=== PATIENT | male | born 1950 | race Caucasian/White ===

== ENCOUNTER 2016-07-13 15:25 | Emergency (ER) | payer MEDICARE, BC ==
--- NOTE | 2016-07-13 17:14 | ER NURSING DOCUMENTATION ---
Nurse's Notes [facility] Name:Gideon Roca Age:66 yrs Sex:Male :1950 Arrival Date:07/13/2016 Time:15:25 Bed4 Private MD: Diagnosis:Altered Mental Status;Hypoglycemia;Transient Ischemic Attack (TIA) Presentation: 07/13 15:32 Transition of care: patient was not received from another setting of care. nf 15:32 Acuity: LIZZIE 2 nf 15:32 Method Of Arrival: Walk In nf 15:32 An acute neurological deficit is present. The patient has been moved to a treatment area. Notified ED Physician of patient's arrival and CC Francesco Sexton notified. 15:32 Presenting complaint: states: @1430 patient developed slurred speech and unstable nf walking; is concerned patient is hypoglycemia, she was able to get him to eat 1/2 a salad prior to coming to ER; upon arrival to ER symptoms slightly improved. Pre-hospital glucose is not applicable to this patient. Triage Assessment: 15:32 The onset of the patients symptoms was less than three hours ago. General: Appears in nf no apparent distress, well nourished, well groomed, Behavior is flat, quiet, Denies fever, feeling ill, fatigue. EENT: No deficits noted. Neuro: Reports feeling "better". Cardiovascular: Denies fatigue, lightheadedness, palpitations, Rhythm is sinus rhythm. Respiratory: Respiratory effort is even, unlabored, Respiratory pattern is regular. GI: Last meal at 15:00. Denies nausea, pain, vomiting. : Denies urinary symptoms. 15:34 Neuro: Level of Consciousness is awake, alert, Denies weakness blurred vision nf dizziness, difficulty swallowing, paresthesias numbness headache. Historical: - Allergies: Tetracycline; - Home Meds: 1. Simvastatin Oral 2. fenofibrate micronized oral 3. levothyroxine oral 4. Folic Acid Oral 5. glimepiride 1 mg oral tab 1 tab once daily 6. Metformin Oral 7. Replesta oral 8. Aspirin Oral 9. insulin - PMHx: DIABETES - IDDM; HIGH CHOLESTEROL; THYROID PROBLEM; - PSHx: HERNIA REPAIR; KNEE SURGERY; - Tetanus: < 10 years. - Ebola Screening: : No symptoms or risks identified at this time. . - Immunization history: Flu Vaccine < 1 year. - Social history: Smoking status: Patient states former smoker of tobacco. Patient uses alcohol but reports only rare drinking. Patient/guardian denies using street drugs. Screenin:32 Infectious Disease Risk None. Abuse screen: Denies threats or abuse. Nutritional nf screening: No deficits noted. Assessment: 15:32 See Triage Assessment done by same RN. Pain: Denies pain. nf 16:13 Reassessment: all symptoms resolved and speech clear. See Triage Assessment done by nf same RN. Vital Signs: 15:32 BP 179 / 79; Pulse 65; Resp 16; Temp 97.2(O); Pulse Ox 96% on R/A; Weight 101.6 kg; nf Height 5 ft. 11 in. (180.34 cm); Pain 0/10; 16:02 BP 154 / 85; Pulse 67; Resp 12; Pulse Ox 96% on R/A; Pain 0/10; nf 17:08 BP 169 / 72; Pulse 63; Resp 12; Pulse Ox 96% on R/A; Pain 0/10; nf 15:32 Body Mass Index 31.24 (101.60 kg, 180.34 cm) nf Maxwell Coma Score: 15:32 Eye Response: spontaneous(4). Verbal Response: oriented(5). Motor Response: obeys nf commands(6). Total: 15. 16:30 Eye Response: spontaneous(4). Verbal Response: oriented(5). Motor Response: obeys nf commands(6). Total: 15. 17:08 Eye Response: spontaneous(4). Verbal Response: oriented(5). Motor Response: obeys nf commands(6). Total: 15. NIH Stroke Scale Scores: 15:32 NIHSS Score: 1 nf ED Course: 15:27 Patient arrived in ED. hw2 15:28 Jose Manuel Maya MD is Attending Physician. jm 15:[address] pm1 15:32 Aylin Johnson, RN is Primary Nurse. nf 15:32 Triage completed. nf 15:32 Family accompanied patient. nf 15:32 Valuables Remains with patient Bed in low position. Side rails up X2. Cardiac nf Monitoring On for Nurse Monitoring only. Door closed. Noise minimized. Lights dimmed. Moved to private room. Verbal reassurance given. Warm blanket given. Pillow given. Diet: Patient is NPO. 15:32 Arm band placed on. nf 15:45 Patient moved back from CT. pm1 15:55 EKG done. (by ED staff). Reviewed by Jose Manuel Maya MD. nf 16:01 EKG attached sc1 Administered Medications: No medications were administered Point of Care Testing: Blood Glucose: 15:32 Blood Glucose: 86 mg/dL; nf Ranges: Outcome: 16:57 Discharge ordered by . 17:08 Discharged to home ambulatory, with significant other. nf 17:08 Condition: improved 17:08 Discharge Assessment: Patient awake, alert and oriented x 3. No cognitive and/or functional deficits noted. Patient verbalized understanding of disposition instructions. asymptomatic 17:08 Discharge instructions given to patient, significant other, Instructed on discharge instructions, follow up and referral plans. Demonstrated understanding of instructions. 17:15 Patient left the ED. nf 02 14:05 Discharge F/U Call: Spoke with: patient. Have you filled your prescriptions? n/a Did sc1 your discharge instructions answer all of your questions? yes Have you made a f/u appointment? yes Overall Care on a scale of 1-10 with 10 being the best care, you rate our care as: the rating of 10. NIH Stroke Scale - NIH Stroke Score Date: 07/13/2016 Time: 15:32 Total Score = 1 1a. Level of Consciousness (LOC) - 0(Alert) 1b. Level of Consciousness (LOC) (Year & Age) - 0(Both) 1c. LOC Commands (Open & Closes Eyes/Cargo Bracer) - 0(Both) 2. Best Gaze (Lateral Gaze Paresis) - 0(Normal) 3. Visual Field Loss - 0(No visual loss) 4. Facial Palsy - 0(Normal) 5a. Left Arm: Motor (10-second hold) - 0(No drift) 5b. Right Arm: Motor (10-second hold) - 0(No drift) 6a. Left Leg: Motor (5-second hold ? always test supine) - 0(No drift) 6b. Right Leg: Motor (5-second hold ? always test supine) - 0(No drift) 7. Limb Ataxia (finger/nose & heel/mcneal ? test with eyes open) - 0(Absent) 8. Sensory Loss (pinprick arms/legs/face) - 0(Normal) 9. Best Language: Aphasia (description/naming/reading) - 0(No aphasia) 10. Dysarthria (speech clarity ? read or repeat words) - 1(Mild to Moderate) 11. Extinction and Inattention (visual/tactile/auditory/spatial/personal) - 0(No abnormality) Initials: nf Signatures: Eunice Bynum RN RN sc1 Aylin Johnson RN RN nf Jose Manuel Maya MD MD jm McBride, Philisha 1 Clotilde Rojas 2
--- NOTE | 2016-07-13 17:14 | ER PHYSICIAN DOCUMENTATION ---
Physician Documentation [facility] Name:Gideon Roca Age:66 yrs Sex:Male :1950 Arrival Date:07/13/2016 Time:15:25 Bed4 Private MD: Jose Manuel Stone Disposition: 07/13/16 16:57 Discharged to Home/Self Care. Impression: Altered Mental Status, Hypoglycemia, Transient Ischemic Attack (TIA). - Condition is Good. - Discharge Instructions: CONFUSION, HYPOGLYCEMIA, Oral Agents, TIA. - Medical Reconciliation form form. - Follow up: Private Physician; When: 2 - 3 days; Reason: Continuance of care. - Problem is new. - Symptoms have improved. - Notes: Come back here to get an MRI of the brain, an ECHO of the heart, and a Carotid Ultrasound. You may need prior authorization for these tests, so get in touch with Dr. Dana KANG if needed. HPI: 07/13 16:53 This 66 yrs old Male presents to ER via Walk In with complaints of Slurred Speech. 16:53 The patient presents to the emergency department with a speech or higher order brain function problem, slurred. Onset: The symptom(s)/episode began/occurred just prior to arrival. Context: occurred while the patient was driving. Associated signs and symptoms: Pertinent positives: altered mental status, anger. Severity of symptoms: in the emergency department the symptoms have resolved. Current symptoms: Currently, the patient is not experiencing any symptoms. Risk factors for stroke or transient ischemic attack: diabetes mellitus, hyperlipidemia. The patient has not experienced similar symptoms in the past. The patient has not recently seen a physician. 16:59 was driving and pt was becoming more and more "out of it". She wanted to go to the ER, but he was belligerent a nd very angry. He said he was hungry, so they got a salad and went home. He started to feel better, but had already called [facility] [place] RN, who said if they don't come to ER by POV, she was going to call 911. Pt feels fine now. Pt states this has never happened before. . Historical: - Allergies: Tetracycline; - Home Meds: 1. Simvastatin Oral 2. fenofibrate micronized oral 3. levothyroxine oral 4. Folic Acid Oral 5. glimepiride 1 mg oral tab 1 tab once daily 6. Metformin Oral 7. Replesta oral 8. Aspirin Oral 9. insulin - PMHx: DIABETES - IDDM; HIGH CHOLESTEROL; THYROID PROBLEM; - PSHx: HERNIA REPAIR; KNEE SURGERY; - Tetanus: < 10 years. - Ebola Screening: : No symptoms or risks identified at this time. . - Immunization history: Flu Vaccine < 1 year. - Social history: Smoking status: Patient states former smoker of tobacco. Patient uses alcohol but reports only rare drinking. Patient/guardian denies using street drugs. ROS: 17:01 Constitutional: Negative for fatigue, fever, malaise. 17:01 Eyes: Negative for blurry vision. 17:01 Neck: Negative for injury or acute deformity, swelling. 17:01 Cardiovascular: Negative for chest pain. 17:01 Respiratory: Negative for cough, shortness of breath, sputum production. 17:01 Abdomen/GI: Negative for abdominal pain, nausea, vomiting, diarrhea. 17:01 MS/extremity: Negative for swelling, tenderness. 17:01 Skin: Negative for rash, swelling. 17:01 Neuro: Positive for altered mental status, speech changes. 17:01 Psych: Negative for depression, drug dependence, alcohol dependence. 17:01 All other systems are negative. Exam: 17:01 Constitutional: The patient appears alert, awake, obese. 17:01 Eyes: Pupils: equal, round, and reactive to light and accomodation, Extraocular movements: intact throughout. 17:01 ENT: Nose: is normal, Voice: is normal. 17:01 Neck: Exam negative for bruits, Trachea: is midline with no obvious abnormalities. 17:01 Cardiovascular: Rate: normal, Rhythm: regular. 17:01 Respiratory: Respirations: normal, Breath sounds: are normal. 17:01 Abdomen/GI: Bowel sounds: normal, Palpation: abdomen is soft and non-tender. 17:01 Musculoskeletal/extremity: Weight bearing: able to fully bear weight, DVT Exam: No signs of deep vein thrombosis. Calves: are non-tender. 17:01 Neuro: Mentation: is normal, Memory: is normal, Cerebellar function: normal finger to nose testing, Motor: strength is 5/5 in all extremities, Sensation: numbness, is not appreciated, Gait: is steady. 17:01 Psych: Behavior/mood is pleasant, cooperative, Affect is calm. Vital Signs: 15:32 BP 179 / 79; Pulse 65; Resp 16; Temp 97.2(O); Pulse Ox 96% on R/A; Weight 101.6 kg; nf Height 5 ft. 11 in. (180.34 cm); Pain 0/10; 16:02 BP 154 / 85; Pulse 67; Resp 12; Pulse Ox 96% on R/A; Pain 0/10; nf 17:08 BP 169 / 72; Pulse 63; Resp 12; Pulse Ox 96% on R/A; Pain 0/10; nf 15:32 Body Mass Index 31.24 (101.60 kg, 180.34 cm) nf NIH Stroke Scale Scores: 15:32 NIHSS Score: 1 nf Maxwell Coma Score: 15:32 Eye Response: spontaneous(4). Verbal Response: oriented(5). Motor Response: obeys nf commands(6). Total: 15. 16:30 Eye Response: spontaneous(4). Verbal Response: oriented(5). Motor Response: obeys nf commands(6). Total: 15. 17:08 Eye Response: spontaneous(4). Verbal Response: oriented(5). Motor Response: obeys nf commands(6). Total: 15. MDM: 15:28 Patient medically screened. 16:01 EKG attached [facility] 17:02 Neurological re-evaluation: normal neurological exam including cranial nerves, orientation, mentation, motor and sensory exam, cerebellar testing, GCS normal, and normal gait. Data reviewed: vital signs, nurses notes, old medical records, lab test result(s), EKG, radiologic studies, and as a result, I will discharge patient. Test interpretation: by ED physician or midlevel provider: ECG. Counseling: I had a detailed discussion with the patient and/or guardian regarding: the historical points, exam findings, and any diagnostic results supporting the discharge/admit diagnosis, lab results, radiology results, the need for outpatient follow up, with the patient's primary care provider. ECG:. ED course: I feel strongly this was a hypoglycemic episode given improved sx w food, and the belligerent nature of the pt. Usually people w TIA's are worried that they cannot answer questions and worried they are slurring their speech. Pt fine now, but I tried to get a hold of PCP, Dr. Cortez for f/u, but I could not reach him. I still would like to see pt get the full TIA w/u as he does have RF for such. Pt will try to get MRI, Carotid US, and ECHO scheduled for next week. . 07/13 16:00 Order name: EKG - 12 Lead; Complete Time: 16:00 nf EC:02 Rhythm is regular. QRS [place] is Normal. No Q waves. T waves are Normal. No ST changes jm noted. Dispensed Medications: No medications were administered Point of Care Testing: Blood Glucose: 15:32 Blood Glucose: 86 mg/dL; nf Ranges: Critical Glucose Levels:Adult <50 mg/dl or >400 mg/dl <40 mg/dl or >180 mg/dl NIH Stroke Scale - NIH Stroke Score Date: 07/13/2016 Time: 15:32 Total Score = 1 1a. Level of Consciousness (LOC) - 0(Alert) 1b. Level of Consciousness (LOC) (Year & Age) - 0(Both) 1c. LOC Commands (Open & Closes Eyes/Crane Rigger) - 0(Both) 2. Best Gaze (Lateral Gaze Paresis) - 0(Normal) 3. Visual Field Loss - 0(No visual loss) 4. Facial Palsy - 0(Normal) 5a. Left Arm: Motor (10-second hold) - 0(No drift) 5b. Right Arm: Motor (10-second hold) - 0(No drift) 6a. Left Leg: Motor (5-second hold ? always test supine) - 0(No drift) 6b. Right Leg: Motor (5-second hold ? always test supine) - 0(No drift) 7. Limb Ataxia (finger/nose & heel/mcneal ? test with eyes open) - 0(Absent) 8. Sensory Loss (pinprick arms/legs/face) - 0(Normal) 9. Best Language: Aphasia (description/naming/reading) - 0(No aphasia) 10. Dysarthria (speech clarity ? read or repeat words) - 1(Mild to Moderate) 11. Extinction and Inattention (visual/tactile/auditory/spatial/personal) - 0(No abnormality) Initials: nf Signatures: Eunice Bynum RN RN [facility] Aylin Johnson RN RN nf Jose Manuel Maya MD MD
--- NOTE | 2016-07-16 09:42 | CT REPORT ---
HISTORY: Stroke alert. COMPARISON: None. TECHNIQUE: Axial non-contrast images obtained from skull vertex through foramen magnum. Dose reduction technique was utilized. FINDINGS: Brain volume and ventricular size are normal. No hemorrhage is demonstrated. There appears to be normal differentiation of wilder and white matter. No mass or hemorrhage is demonstrated. The skull is intact and visualized paranasal sinuses are unremarkable. IMPRESSION: No CT signs of acute infarct and no hemorrhage. Critical results (stroke alert) were called personally to Dr. Maya on 2016 at 3:52 PM. Final Electronic Signature: This report was electronically signed by Mtaheus Guerrero MD on 07/13/2016 3:52 PM. amarjit / LG
== END 2016-07-13 17:15 | disposition home or self-care (01) ==
LOC: ER 15:25
DX: R41.82 Altered mental status, unspecified (principal); E11.649 Type 2 diabetes mellitus with hypoglycemia without coma; R47.81 Slurred speech; R29.701 NIHSS score 1; E78.00 Pure hypercholesterolemia, unspecified; Z79.4 Long term (current) use of insulin; Z79.82 Long term (current) use of aspirin; Z79.899 Other long term (current) drug therapy
CPT/HCPCS: 70450; 93005; 93010; 99284; 99285

== ENCOUNTER 2016-11-10 10:09 | Emergency (ER) | payer MEDICARE, BC ==
[2016-11-10] MEDS ORDERED: LIDOCAINE/EPI 2% 1:200,000 10 ML VIAL ONE (11:07)
--- NOTE | 2016-11-10 11:21 | ER NURSING DOCUMENTATION ---
Nurse's Notes [facility] Name:Gideon Roca Age:66 yrs Sex:Male :1950 Arrival Date:11/10/2016 Time:10:09 Bed6 Private MD: Diagnosis:Knee Effusion Presentation: 11/10 10:18 Presenting complaint: Patient states: pt. has been having knee problems since having sc1 foot surgery. Dr. Kelley has been "draining" his knee x 1 month. He flew back from [place] last night and has increased swelling and pain. Transition of care: Home. Notified ED Physician of patient's arrival and CC Francesco Sexton notified. 10:18 Acuity: LIZZIE 4 sc1 10:18 Method Of Arrival: Private Vehicle sc1 Triage Assessment: 10:22 General: Appears in no apparent distress, well developed, well nourished, well groomed, sc1 Behavior is cooperative, pleasant. Pain: Complains of pain in left knee. Historical: - Allergies: TETRACYCLINES; - Home Meds: 1. Simvastatin Oral 2. fenofibrate micronized oral 3. levothyroxine oral 4. Folic Acid Oral 5. glimepiride 1 mg oral tab 1 tab once daily 6. Metformin Oral 7. Replesta oral 8. Aspirin Oral 9. insulin - PMHx: DIABETES - IDDM; HIGH CHOLESTEROL; THYROID PROBLEM; Altered Mental Status (July 13, 2016); Hypoglycemia (July 13, 2016); Transient Ischemic Attack (TIA)(July 13, 2016); Foot surgery; - PSHx: HERNIA REPAIR; KNEE SURGERY; - Ebola Screening: : Patient negative for fever greater than or equal to 101.5 degrees Fahrenheit, and additional compatible Ebola Virus Disease symptoms. Patient denies exposure to infectious person. Patient denies travel to an Ebola-affected area in the 21 days before illness onset. No symptoms or risks identified at this time. . - Immunization history: Pneumococcal vaccine is up to date, Flu Vaccine < 1 year. - Social history: Smoking status: Patient states was never smoker of tobacco. Patient/guardian denies using alcohol, street drugs, IV drugs, marijuana. Screenin:23 Infectious Disease Risk None. Abuse screen: Denies threats or abuse. Nutritional sc1 screening: No deficits noted. Vital Signs: 10:19 BP 156 / 78; Pulse 63; Resp 16; Temp 97.8(O); Pulse Ox 93% on R/A; Weight 102.51 kg arc (R); Height 5 ft. 11 in. (180.34 cm) (R); Pain 6/10; 10:19 Body Mass Index 31.52 (102.51 kg, 180.34 cm) arc ED Course: 10:11 Patient arrived in ED. ama 10:18 Eunice Bynum, RN is Primary Nurse. ma1 10:21 Triage completed. sc1 10:23 Notified ED Physician of patient's arrival and chief complaint. Dr. Maya notified. sc1 Allergy Band Placed Arm band placed on Bed in low position Call Light in Reach HOB Elevated. 10:26 Jose Manuel Maya MD is Attending Physician. opal 10:53 Assist Provider Assist provider with I & D: of an abscess on left knee Set up I&D tray. sc1 Performed by Jose Manuel Maya MD Dressing with bandaid Patient tolerated well. 11:12 Ghassan Kelley DO, William Michaels MD is Referral Physician. Administered Medications: 11:14 Drug: Lidocaine-Epinephrine -2 % (1:100,000) 10 ml; Route: Infiltration; ma1 11:20 Follow up: Response: No adverse reaction ma1 Outcome: 11:13 Discharge ordered by . opal 11:20 Patient left the ED. ma1 Signatures: Eunice Bynum RN RN sc1 Jose Manuel Maya MD MD jm Averdick, Andrew, Reg Reg ama Cecy Nieto, Reg Reg arc
--- NOTE | 2016-11-10 11:21 | ER PHYSICIAN DOCUMENTATION ---
Physician Documentation [facility] Name:Gideon Roca Age:66 yrs Sex:Male :1950 Arrival Date:11/10/2016 Time:10:09 Bed6 Private MD: Jose Manuel Stone Disposition: 11/10/16 11:13 Discharged to Home/Self Care. Impression: Knee Effusion. - Condition is Good. - Discharge Instructions: KNEE EFFUSION. - Medical Reconciliation form form. - Follow up: Ghassan Kelley DO, William Michaels MD; When: [place]AR[place]; Reason: Recheck today's complaints. - Problem is new. - Symptoms have improved. HPI: 11/10 11:19 This 66 yrs old Male presents to ER via Private Vehicle with complaints of jm Knee Pain - L. 11:19 The patient presents with pain, swelling. The complaints affect the left knee. jm Treatment prior to arrival includes: drained 8 days ago. . Severity of symptoms: in the emergency department the symptoms are actually worse. The patient has experienced similar episodes in the past. Pt feel like he needs his knee drained again. Dr. Mayo has done it in the past. . Historical: - Allergies: TETRACYCLINES; - Home Meds: 1. Simvastatin Oral 2. fenofibrate micronized oral 3. levothyroxine oral 4. Folic Acid Oral 5. glimepiride 1 mg oral tab 1 tab once daily 6. Metformin Oral 7. Replesta oral 8. Aspirin Oral 9. insulin - PMHx: DIABETES - IDDM; HIGH CHOLESTEROL; THYROID PROBLEM; Altered Mental Status (July 13, 2016); Hypoglycemia (July 13, 2016); Transient Ischemic Attack (TIA)(July 13, 2016); Foot surgery; - PSHx: HERNIA REPAIR; KNEE SURGERY; - Ebola Screening: : Patient negative for fever greater than or equal to 101.5 degrees Fahrenheit, and additional compatible Ebola Virus Disease symptoms. Patient denies exposure to infectious person. Patient denies travel to an Ebola-affected area in the 21 days before illness onset. No symptoms or risks identified at this time. . - Immunization history: Pneumococcal vaccine is up to date, Flu Vaccine < 1 year. - Social history: Smoking status: Patient states was never smoker of tobacco. Patient/guardian denies using alcohol, street drugs, IV drugs, marijuana. ROS: 11:21 Constitutional: Negative for fever. jm 11:21 MS/extremity: Positive for pain, swelling, tenderness. 11:21 Skin: Positive for swelling. 11:21 Skin: Negative for erythema, rash. 11:21 Neuro: Positive for gait disturbance. Exam: 11:21 Constitutional: The patient appears alert, awake, obese. jm 11:21 Musculoskeletal/extremity: Extremities: grossly normal except: noted in the left knee: swelling, tenderness, Joints: All joints are normal except the left knee displays effusion, painful range of motion, swelling, Weight bearing: able to fully bear weight. 11:21 Skin: Appearance: Color: pink, Temperature: normal temperature, swelling, noted on the left knee, that are moderate, no rash present. Vital Signs: 10:19 BP 156 / 78; Pulse 63; Resp 16; Temp 97.8(O); Pulse Ox 93% on R/A; Weight 102.51 kg arc (R); Height 5 ft. 11 in. (180.34 cm) (R); Pain 6/10; 10:19 Body Mass Index 31.52 (102.51 kg, 180.34 cm) arc Procedures: 11:21 Joint Treatment: Aspiration of left knee using 18 gauge needle, Lidocaine, Removed jm clear fluid, yellow fluid, Dressed with band aid, Patient tolerated well. MDM: 10:26 Patient medically screened. jm 11:21 Differential diagnosis: effusion. Data reviewed: vital signs, nurses notes, and as a jm result, I will discharge patient. Counseling: I had a detailed discussion with the patient and/or guardian regarding: the historical points, exam findings, and any diagnostic results supporting the discharge/admit diagnosis, the need for outpatient follow up, a orthopedic surgeon. Response to treatment: the patient's symptoms have markedly improved after treatment. ED course: Drained 85cc of straw fluid. . Dispensed Medications: 11:14 Drug: Lidocaine-Epinephrine -2 % (1:100,000) 10 ml; Route: Infiltration; sc1 11:20 Follow up: Response: No adverse reaction sc1 Signatures: Eunice Bynum RN RN sc1 Jose Manuel Maya MD MD
== END 2016-11-10 11:21 | disposition home or self-care (01) ==
LOC: ER 10:09
DX: M25.462 Effusion, left knee (principal); M79.89 Other specified soft tissue disorders; M25.562 Pain in left knee; E11.9 Type 2 diabetes mellitus without complications; Z79.899 Other long term (current) drug therapy; Z79.4 Long term (current) use of insulin
CPT/HCPCS: 20610; 99283; 99284

== ENCOUNTER 2016-11-24 16:40 | Emergency (ER) | payer MEDICARE, BC ==
--- NOTE | 2016-11-24 17:26 | ER NURSING DOCUMENTATION ---
Nurse's Notes [facility] Name:Gideon Roca Age:66 yrs Sex:Male :1950 Arrival Date:11/24/2016 Time:16:40 Bed4 Private MD: Diagnosis:Knee Effusion Presentation: 11/24 16:42 Acuity: LIZZIE 3 tg 16:50 Presenting complaint: Patient states: left knee swelling. Transition of care: Home. sc1 Notified ED Physician of patient's arrival and CC Francesco Sexton notified. 16:50 Method Of Arrival: Private Vehicle sc1 Triage Assessment: 16:53 General: Appears in no apparent distress, well developed, well nourished, well groomed, sc1 Behavior is cooperative, pleasant. Pain: Complains of pain in left knee. Historical: - Allergies: TETRACYCLINES; - Home Meds: 1. Simvastatin Oral 2. fenofibrate micronized oral 3. levothyroxine oral 4. Folic Acid Oral 5. glimepiride 1 mg oral tab 1 tab once daily 6. Metformin Oral 7. Replesta oral 8. Aspirin Oral 9. insulin - PMHx: DIABETES - IDDM; HIGH CHOLESTEROL; THYROID PROBLEM; Altered Mental Status (July 13, 2016); HYPOGLYCEMIA (July 13, 2016); Transient Ischemic Attack (TIA)(July 13, 2016); Foot surgery; Knee Effusion (November 10, 2016); - PSHx: HERNIA REPAIR; KNEE SURGERY; - Ebola Screening: : Patient negative for fever greater than or equal to 101.5 degrees Fahrenheit, and additional compatible Ebola Virus Disease symptoms. Patient denies exposure to infectious person. Patient denies travel to an Ebola-affected area in the 21 days before illness onset. No symptoms or risks identified at this time. . - Immunization history: Flu Vaccine < 1 year. - Social history: Smoking status: Patient states was never smoker of tobacco. Patient/guardian denies using alcohol, street drugs, IV drugs, marijuana. Screenin:54 Infectious Disease Risk None. Abuse screen: Denies threats or abuse. Nutritional sc1 screening: No deficits noted. Vital Signs: 16:53 BP 172 / 67; Pulse 70; Resp 18; Temp 98.5; Pulse Ox 94% on R/A; sc1 ED Course: 16:42 Patient arrived in ED. ama 16:42 Triage completed. tg 16:44 Jose Manuel Maya MD is Attending Physician. opal 16:50 Eunice Bynum, RN is Primary Nurse. ri1 16:53 Notified ED Physician of patient's arrival and chief complaint. Dr. Maya notified. Arm sc1 band placed on Bed in low position Call Light in Reach HOB Elevated. 17:10 Assist Provider Assist provider with I & D: of an abscess on Set up I&D tray. Performed sc1 by Jose Manuel Maya MD Dressing with bandaide Patient tolerated well. 17:18 Ghassan Kelley DO is Referral Physician. opal Administered Medications: No medications were administered Outcome: 16:46 Discharge ordered by . opal 17:19 Discharge ordered by . 17:24 Discharged to home ambulatory. [facility] 17:24 Condition: improved 17:24 Discharge instructions given to patient, Instructed on discharge instructions, follow up and referral plans. Demonstrated understanding of instructions. 17:25 Patient left the ED. sc1 Signatures: Jose Manuel Morrell RN RN Eunice Bynum, JANAY RN sc1 Jose Manuel Maya MD MD jm Averdick, Andrew, Sebastien Reg ama
--- NOTE | 2016-11-24 17:26 | ER PHYSICIAN DOCUMENTATION ---
Physician Documentation [facility] Name:Gideon Roca Age:66 yrs Sex:Male :1950 Arrival Date:11/24/2016 Time:16:40 Bed4 Private MD: Jose Manuel Stone Disposition: 11/24/16 17:19 Discharged to Home/Self Care. Impression: Knee Effusion. - Condition is Good. - Discharge Instructions: KNEE EFFUSION. - Medical Reconciliation form form. - Follow up: Ghassan Kelley DO; When: 2 - 3 days; Reason: Continuance of care. - Problem is new. - Symptoms have improved. HPI: 11/24 17:47 This 66 yrs old Male presents to ER via Private Vehicle with complaints of jm Knee Pain - L. 17:47 The patient or guardian complains of pain, swelling. The complaints affect the left jm knee. Context: resulted from a chronic condition. The patient has experienced similar episodes in the past, and the symptoms today are exactly the same, to when the patient was apparently diagnosed with effusions that need tapping . Historical: - Allergies: TETRACYCLINES; - Home Meds: 1. Simvastatin Oral 2. fenofibrate micronized oral 3. levothyroxine oral 4. Folic Acid Oral 5. glimepiride 1 mg oral tab 1 tab once daily 6. Metformin Oral 7. Replesta oral 8. Aspirin Oral 9. insulin - PMHx: DIABETES - IDDM; HIGH CHOLESTEROL; THYROID PROBLEM; Altered Mental Status (July 13, 2016); HYPOGLYCEMIA (July 13, 2016); Transient Ischemic Attack (TIA)(July 13, 2016); Foot surgery; Knee Effusion (November 10, 2016); - PSHx: HERNIA REPAIR; KNEE SURGERY; - Ebola Screening: : Patient negative for fever greater than or equal to 101.5 degrees Fahrenheit, and additional compatible Ebola Virus Disease symptoms. Patient denies exposure to infectious person. Patient denies travel to an Ebola-affected area in the 21 days before illness onset. No symptoms or risks identified at this time. . - Immunization history: Flu Vaccine < 1 year. - Social history: Smoking status: Patient states was never smoker of tobacco. Patient/guardian denies using alcohol, street drugs, IV drugs, marijuana. ROS: 17:47 Constitutional: Negative for fatigue, fever. jm 17:47 MS/extremity: Positive for swelling, tenderness. 17:47 Skin: Positive for swelling. Exam: 17:47 Constitutional: The patient appears alert, awake, obese. jm 17:47 Musculoskeletal/extremity: Extremities: grossly normal except: noted in the left knee: pain, swelling, tenderness, Pulses: are normal with no appreciated deficits. 17:47 Skin: Appearance: swelling, noted on the left knee, that are moderate, no rash present. Vital Signs: 16:53 BP 172 / 67; Pulse 70; Resp 18; Temp 98.5; Pulse Ox 94% on R/A; sc1 Procedures: 17:47 Joint Treatment: Aspiration of left knee using 18 gauge needle, Removed clear fluid, jm yellow fluid, Dressed with band aid, Patient tolerated well. MDM: 16:44 Patient medically screened. jm 17:47 Differential diagnosis: effusion. Data reviewed: vital signs, nurses notes, and as a jm result, I will discharge patient. Counseling: I had a detailed discussion with the patient and/or guardian regarding: the historical points, exam findings, and any diagnostic results supporting the discharge/admit diagnosis, the need for outpatient follow up, a orthopedic surgeon. Dispensed Medications: No medications were administered Signatures: Enuice Bynum RN RN sc1 Jose Manuel Maya MD MD
== END 2016-11-24 17:26 | disposition home or self-care (01) ==
LOC: ER 16:40
DX: M25.462 Effusion, left knee (principal); M25.562 Pain in left knee; E11.9 Type 2 diabetes mellitus without complications; Z79.899 Other long term (current) drug therapy; Z79.82 Long term (current) use of aspirin
CPT/HCPCS: 20610; 99282; 99283